=== PATIENT | female | born 1980 | race Caucasian/White ===

== ENCOUNTER 2018-08-28 19:14 | Emergency (ER) | payer MEDICAID ==
[~2018-08-28] VITALS: Ht 154.9 cm; Wt 68.0 kg
[2018-08-28 19:19] VITALS: Ht 154.9 cm; Wt 68.0 kg
[2018-08-28 20:58] VITALS: BP 107/69
== END 2018-08-28 20:58 | disposition home or self-care (01) ==
LOC: ED 19:14
DX: S93.691A Other sprain of right foot, initial encounter (principal); W22.8XXA Striking against or struck by other objects, initial encounter; Y93.E5 Activity, floor mopping and cleaning; Y92.098 Other place in other non-institutional residence as the place of occurrence of the external cause; Y99.8 Other external cause status
CPT/HCPCS: J1885; Q0092